=== PATIENT | female | born 1935 | race Caucasian/White ===

== ENCOUNTER 2024-04-17 22:10 | Inpatient (IN) | payer MEDICARE ==
[2024-04-17 23:19] VITALS: BMI 26.8
[2024-04-17] MEDS ORDERED: Pantoprazole 80 MG in Sodium Chloride 0.9% 100 ML IVPB SCH (23:45)
[2024-04-17] MEDS ORDERED: Acetaminophen 325 MG TAB PO PRN (23:57)
[2024-04-17] MEDS ORDERED: Calcium Carbonate 500 MG ChewTAB PO PRN (23:57)
[2024-04-18] MEDS: traMADol HCl 50 MG TAB PO PRN (00:32)
[2024-04-18] MEDS: Sodium Chloride 0.9% 1,000 ML IV SCH (00:33)
[2024-04-18 01:00] LABS: Hematocrit 30.3 % (36.0-47.0); Hemoglobin 9.6 g/dL (12.0-16.0)
[2024-04-18 04:41] LABS: #Basophils 0.07 10x3/uL (0.0-0.2); %Lymphocytes 26.2 % (21.0-51.0); %Neutrophils 57.5 % (42.0-75.0); Hematocrit 27.8 % (36.0-47.0); Hemoglobin 8.5 g/dL (12.0-16.0); Mean Corpuscular HGB CONC 30.6 g/dL (32.0-36.0); Mean Corpuscular Hemoglobin 28.3 pg (27.0-31.0); Mean Corpuscular Volume 92.7 fL (78.0-98.0); Mean Platelet Volume 11.6 fL (7.4-10.4); Platelet Count 188 10x3/uL (130-400); RBC Distribution Width 15.1 % (11.5-14.5)
[2024-04-18 05:00] LABS: ALT (SGPT) 8 U/L (8-55); AST (SGOT) 19 U/L (5-34); Albumin 2.7 g/dL (3.4-4.8); Alkaline Phosphatase 76 U/L (40-110); Anion Gap 12 mmol/L (10-20); BUN (Urea Nitrogen) 19 mg/dL (9.8-20.1); Bilirubin, Total 0.3 mg/dL (0.2-1.2); Calc. Creatinine Clearance 68 mL/min (70-130); Calcium 8.4 mg/dL (7.8-10.44); Carbon Dioxide 21 mmol/L (23-31); Chloride 110 mmol/L (98-107); Estimated GFR 85; Globulin 2.7 g/dL (2.4-3.5); Glucose 90 mg/dL (83-110); Potassium 4.2 mmol/L (3.5-5.1); Protein, Total 5.4 g/dL (5.8-8.1); Sodium 139 mmol/L (136-145)
[2024-04-18] MEDS: Levothyroxine Sodium 125 MCG TAB PO SCH (05:26)
[2024-04-18] MEDS ORDERED: Scopolamine 1 mg/72 hour Patch ONE (10:21)
[2024-04-18] MEDS ORDERED: PROPOFOL 20 ML ONE (10:35)
[2024-04-18] MEDS: Pantoprazole 80 MG, Admixture Fee 1 EACH in Sodium Chloride 0.9% 100 ML IVPB SCH (14:19)
[2024-04-18 16:04] LABS: Hemoglobin 8.1 g/dL (12.0-16.0); Platelet Count 204 10x3/uL (130-400)
[2024-04-18] MEDS: GoLYTELY 4,000 ml Bottle PO SCH (17:44)
[2024-04-18] MEDS: Ondansetron PF 4 MG/2 ML Vial IVP PRN (21:22)
[2024-04-18 22:14] LABS: Hematocrit 26.6 % (36.0-47.0); Hemoglobin 8.5 g/dL (12.0-16.0); Platelet Count 204 10x3/uL (130-400)
[2024-04-19 05:00] LABS: #Basophils 0.06 10x3/uL (0.0-0.2); %Basophils 0.8 % (0.0-1.0); %Eosinophils 8.9 % (0.0-10.0); %Lymphocytes 22.6 % (21.0-51.0); %Monocytes 8.1 % (0.0-10.0); %Neutrophils 59.3 % (42.0-75.0); Hematocrit 22.6 % (36.0-47.0); Hemoglobin 7.1 g/dL (12.0-16.0); Mean Corpuscular HGB CONC 31.4 g/dL (32.0-36.0); Mean Corpuscular Hemoglobin 28.5 pg (27.0-31.0); Mean Corpuscular Volume 90.8 fL (78.0-98.0); Mean Platelet Volume 11.8 fL (7.4-10.4); Platelet Count 171 10x3/uL (130-400); RBC Distribution Width 15.3 % (11.5-14.5); Red Blood Cell (RBC) Count 2.49 mill/uL (4.20-5.40)
[2024-04-19 05:01] LABS: Hematocrit 22.5 % (36.0-47.0); Hemoglobin 7.1 g/dL (12.0-16.0); Platelet Count 173 10x3/uL (130-400)
[2024-04-19 05:28] LABS: Anion Gap 9 mmol/L (10-20); BUN (Urea Nitrogen) 15 mg/dL (9.8-20.1); Calc. Creatinine Clearance 59 mL/min (70-130); Calcium 8.3 mg/dL (7.8-10.44); Carbon Dioxide 24 mmol/L (23-31); Chloride 111 mmol/L (98-107); Estimated GFR 75; Glucose 82 mg/dL (83-110); Potassium 3.7 mmol/L (3.5-5.1); Sodium 140 mmol/L (136-145)
[2024-04-19 08:11] LABS: Hematocrit 22.6 % (36.0-47.0); Hemoglobin 7.1 g/dL (12.0-16.0); Platelet Count 163 10x3/uL (130-400)
[2024-04-19] MEDS ORDERED: PROPOFOL 20 ML ONE ×2 (11:10→11:47)
[2024-04-19] MEDS ORDERED: Lidocaine 1% PF 5 ML VIAL ONE (11:10)
[2024-04-19] MEDS: Furosemide 40 MG (4 mL) VIAL SLOW IVP SCH (13:16)
[2024-04-19 22:58] LABS: Hematocrit 27.1 % (36.0-47.0); Hemoglobin 8.7 g/dL (12.0-16.0)
[2024-04-20 04:07] LABS: #Basophils 0.06 10x3/uL (0.0-0.2); %Basophils 0.7 % (0.0-1.0); %Eosinophils 8.1 % (0.0-10.0); %Lymphocytes 26.6 % (21.0-51.0); %Monocytes 10.4 % (0.0-10.0); Hemoglobin 8.6 g/dL (12.0-16.0); Mean Corpuscular HGB CONC 31.9 g/dL (32.0-36.0); Mean Corpuscular Hemoglobin 28.4 pg (27.0-31.0); Mean Corpuscular Volume 89.1 fL (78.0-98.0); Mean Platelet Volume 11.8 fL (7.4-10.4); Platelet Count 159 10x3/uL (130-400); RBC Distribution Width 16.4 % (11.5-14.5); Red Blood Cell (RBC) Count 3.03 mill/uL (4.20-5.40)
[2024-04-20 04:25] LABS: Anion Gap 11 mmol/L (10-20); BUN (Urea Nitrogen) 18 mg/dL (9.8-20.1); Calc. Creatinine Clearance 47 mL/min (70-130); Calcium 8.5 mg/dL (7.8-10.44); Carbon Dioxide 25 mmol/L (23-31); Chloride 107 mmol/L (98-107); Estimated GFR 56; Glucose 88 mg/dL (83-110); Potassium 3.6 mmol/L (3.5-5.1); Sodium 139 mmol/L (136-145)
[2024-04-21 04:00] LABS: #Basophils 0.05 10x3/uL (0.0-0.2); %Basophils 0.7 % (0.0-1.0); %Eosinophils 8.8 % (0.0-10.0); %Lymphocytes 28.5 % (21.0-51.0); %Monocytes 10.8 % (0.0-10.0); %Neutrophils 50.9 % (42.0-75.0); Hematocrit 26.5 % (36.0-47.0); Hemoglobin 8.5 g/dL (12.0-16.0); Mean Corpuscular HGB CONC 32.1 g/dL (32.0-36.0); Mean Corpuscular Hemoglobin 29.1 pg (27.0-31.0); Mean Corpuscular Volume 90.8 fL (78.0-98.0); Mean Platelet Volume 11.4 fL (7.4-10.4); Platelet Count 166 10x3/uL (130-400); RBC Distribution Width 15.9 % (11.5-14.5); Red Blood Cell (RBC) Count 2.92 mill/uL (4.20-5.40)
[2024-04-21 04:18] LABS: Anion Gap 10 mmol/L (10-20); BUN (Urea Nitrogen) 14 mg/dL (9.8-20.1); Calc. Creatinine Clearance 58 mL/min (70-130); Calcium 8.6 mg/dL (7.8-10.44); Carbon Dioxide 24 mmol/L (23-31); Chloride 107 mmol/L (98-107); Estimated GFR 72; Glucose 82 mg/dL (83-110); Potassium 3.8 mmol/L (3.5-5.1); Sodium 137 mmol/L (136-145)
[2024-04-21] MEDS: Meclizine HCl 12.5 MG TAB PO PRN (15:49)
[2024-04-21 17:01] VITALS: BP 136/68; TEMP 98.1
== END 2024-04-21 17:00 | disposition home or self-care (01) | DRG 378 ==
LOC: 2NO 22:10 → OBSVTOIN 23:54
PROVIDERS: ADMIT Internal Medicine; ATTEND Internal Medicine
PROC: 30233N1 Transfusion of Nonautologous Red Blood Cells into Peripheral Vein, Percutaneous Approach (ICD-10-PCS; 2024-04-17)
PROC: 0DJ08ZZ Inspection of Upper Intestinal Tract, Via Natural or Artificial Opening Endoscopic (ICD-10-PCS; principal; 2024-04-18)
PROC: 0DJD8ZZ Inspection of Lower Intestinal Tract, Via Natural or Artificial Opening Endoscopic (ICD-10-PCS; 2024-04-19)
DX: K57.31 Diverticulosis of large intestine without perforation or abscess with bleeding (principal); D62 Acute posthemorrhagic anemia; K59.09 Other constipation; Y93.89 Activity, other specified; E03.9 Hypothyroidism, unspecified; I10 Essential (primary) hypertension; M06.9 Rheumatoid arthritis, unspecified; Z88.5 Allergy status to narcotic agent; Z79.899 Other long term (current) drug therapy; Z79.890 Hormone replacement therapy; Z85.3 Personal history of malignant neoplasm of breast; W19.XXXA Unspecified fall, initial encounter; Y92.238 Other place in hospital as the place of occurrence of the external cause; Z79.82 Long term (current) use of aspirin
CPT/HCPCS: 36415; 36416; 36430; 70450; 72126; 72170; 80048; 80053; 85025; 86850; 86900; 86901; J1940; J2405; J2470; J2704; J7030; P9016